=== PATIENT | female | born 1960 | race Two or more races ===

== ENCOUNTER 2022-08-26 05:40 | Day surgery (SDC) | payer OTHER ==
[~2022-08-26] VITALS: Ht 165.1 cm; Wt 86.2 kg
[~2022-08-26 05:40] MED LIST: ATIVAN1 M1 PO; CRESTOR20 MG PO; CYMBALTA60 MG PO; DOXEPIN HC10 MG/1 ML PO; METFORMIN HCL500 M3 PO; REMERON30 MG PO; [UNRECOGNIZED DRUG - OTHER] PO
== END 2022-08-26 14:30 | disposition home or self-care (01) ==
LOC: CIR.AMB 05:40
PROVIDERS: ATTEND Obstetrics & Gynecology
DX: N84.0 Polyp of corpus uteri (principal); D25.0 Submucous leiomyoma of uterus; N95.0 Postmenopausal bleeding; Z20.822 Contact with and (suspected) exposure to COVID-19; E78.5 Hyperlipidemia, unspecified; E11.9 Type 2 diabetes mellitus without complications; Z79.84 Long term (current) use of oral hypoglycemic drugs